=== PATIENT | male | born 1980 | race Caucasian/White ===

== ENCOUNTER 2025-03-08 16:21 | Emergency (ER) | payer OTHER ==
[~2025-03-08] VITALS: Ht 170.2 cm; Wt 79.8 kg
[2025-03-08] MEDS ORDERED: KETOROLAC TROMETHAMINE 30 MG VIAL IM STA (17:29)
[2025-03-08] MEDS ORDERED: ORPHENADRINE CITRATE 30 MG/ML AMPUL IM STA (17:30)
[2025-03-08] MEDS ORDERED: DEXAMETHASONE SODIUM PHOSPHATE 4 MG/ML VIAL IM STA (17:30)
[2025-03-08] MEDS ORDERED: DEXAMETHASONE SODIUM PHOSPHATE 4 MG/ML VIAL ONE (17:40)
[2025-03-08] MEDS ORDERED: KETOROLAC TROMETHAMINE 30 MG VIAL ONE (17:40)
[2025-03-08] MEDS ORDERED: ORPHENADRINE CITRATE 30 MG/ML AMPUL ONE (17:40)
== END 2025-03-08 18:43 | disposition home or self-care (01) ==
LOC: ER 16:22
DX: M54.89 Other dorsalgia (principal); M51.369 Other intervertebral disc degeneration, lumbar region without mention of lumbar back pain or lower extremity pain